=== PATIENT | female | born 1940 | race Caucasian/White ===

== ENCOUNTER 2017-01-28 14:01 | Emergency (ER) | payer MEDICARE, OTHER ==
[~2017-01-28] VITALS: Ht 162.6 cm; Wt 65.8 kg
[~2017-01-28 14:01] MED LIST: ASPI325T70 PO; ASPI325T8 PO; DONE10TA61 PO; LEVO137T3 PO; LISI40TA PO; MECL25TA PO; SIMV20TA3 PO
[2017-01-28 14:30] VITALS: BP 154/109
--- NOTE | 2017-01-28 15:36 | RAD ---
HAND BILAT 3V Clinical Indication: first digit pain bilaterally Comparison: None. Findings: No acute fracture or malalignment. The joint spaces are maintained. Bony mineralization is normal for the patient's age. No significant soft tissue abnormality. No radiopaque foreign body. IMPRESSION: No acute fracture or malalignment.
--- NOTE | 2017-01-28 15:36 | RAD ---
CT head Indication:fall with head injury Technique: CT head without IV contrast Comparison: Previous study from 2014 Findings: No pathologic extra-axial or intra-axial fluid collection. Moderate diffuse cerebral atrophy with ex likely dilation of the ventricles. No acute cranial bleed. The basal cisterns are within normal limits. Confluent low attenuation of the periventricular and deep white matter noted. No focal loss of maciel-white differentiation. Orbits are within normal limits. No acute fractures. Visualized paranasal sinuses and mastoid air cells are clear. Scalp swelling noted overlying right posterolateral parietal bone Impression: 1. No acute intracranial process. 2. Right posterolateral parietal scalp swelling. 3. Advanced White matter changes likely secondary to chronic microvascular ischemic disease. CT cervical spine Indication: Trauma Technique: CT of the cervical spine without IV contrast with multiplanar reformats. Comparison: None Findings: Cervical spine is in normal anatomic alignment. No compression deformities. Status post anterior fusion of C4-C5 vertebral bodies. No acute fractures. Atlantoaxial joint interval is preserved. Degenerative changes noted at C5-C6, C6-C7. Facet joints are in normal anatomic alignment. Prevertebral soft tissue within normal limits. Visualized lung apices are clear. Impression: No acute fractures. PQRS Compliance Statement: One or more of the following individualized dose reduction techniques were utilized for this examination: 1. Automated exposure control 2. Adjustment of the mA and/or kV according to patient size 3. Use of iterative reconstruction technique
--- NOTE | 2017-01-28 15:43 | PHYS DOC ---
Past Medical History Past Medical History: Dementia, High Cholesterol, Hypertension Past Surgical History: Other Additional Past Surgical Histo: UNKNOWN Alcohol Use: None Drug Use: None Adult General Chief Complaint Chief Complaint: HEAD INJURY/TRAUMA HPI HPI Patient is a 76 year old female who presents with followed crotch. She has a knot on the posterior aspect of her right scalp. She also complains about index finger pain. Morning to her [id number] she has a history dementia. Review of Systems Review of Systems Constitutional: Denies fever or chills [] Eyes: Denies change in visual acuity, redness, or eye pain [] HENT: Denies nasal congestion or sore throat [] Respiratory: Denies cough or shortness of breath [] Cardiovascular: No additional information not addressed in HPI [] GI: Denies abdominal pain, nausea, vomiting, bloody stools or diarrhea [] : Denies dysuria or hematuria [] Musculoskeletal: Denies back pain, positive bilateral finger pain Integument: Denies rash or skin lesions [] Neurologic: Denies headache, focal weakness or sensory changes [] Endocrine: Denies polyuria or polydipsia [] All other systems were reviewed and found to be within normal limits, except as documented in this note. Allergies Allergies Allergies Coded Allergies Type Severity Reaction Last Updated Verified No Known Drug Allergies 12/14/13 No Physical Exam Physical Exam Constitutional: Well developed, well nourished, no acute distress, non-toxic appearance. [] HENT: Normocephalic, bilateral external ears normal, oropharynx moist, no oral exudates, nose normal. Scalp hematoma in the right parietal region, no laceration appreciated Eyes: PERRLA, EOMI, conjunctiva normal, no discharge. [] Neck: Normal range of motion, no tenderness, supple, no stridor. [] Cardiovascular:Heart rate regular rhythm, no murmur [] Lungs & Thorax: Bilateral breath sounds clear to auscultation [] Abdomen: Bowel sounds normal, soft, no tenderness, no masses, no pulsatile masses. [] Skin: Warm, dry, no erythema, no rash. [] Back: No tenderness, no CVA tenderness. [] Extremities: No tenderness, no cyanosis, no clubbing, ROM intact, no edema. [] Neurologic: Alert and oriented X 3, normal motor function, normal sensory function, no focal deficits noted. [] Psychologic: Affect normal, judgement normal, mood normal. [] Current Patient Data Vital Signs Vital Signs Date Time Temp Pulse Resp B/P (MAP) Pulse Ox O2 Delivery O2 Flow Rate FiO2 01/28/17 14:30 98.7 65 20 154/109 (124) 100 Room Air 98.7 EKG EKG [] Radiology/Procedures Radiology/[place] [address] IMAGING REPORT Signed PATIENT: SAAD WILSON ACCOUNT: [id number] : 1940 LOCATION: ER AGE: 76 SEX: F EXAM STATUS: REG ER ORD. PHYSICIAN: KRISTAN LERNER MD REASON: first digit pain bilaterally PROCEDURE: HAND BILAT 3V HAND BILAT 3V Clinical Indication: first digit pain bilaterally Comparison: None. Findings: No acute fracture or malalignment. The joint spaces are maintained. Bony mineralization is normal for the patient's age. No significant soft tissue abnormality. No radiopaque foreign body. IMPRESSION: No acute fracture or malalignment. DICTATED and SIGNED BY: CHRISTINA HYATT MD DATE: 01/28/17 152 CC: KRISTAN LERNER MD; MEAGAN BERNAL MD ~ [place] [address] IMAGING REPORT Signed PATIENT: SAAD WILSON ACCOUNT: [id number] : 1940 LOCATION: ER AGE: 76 SEX: F EXAM STATUS: REG ER ORD. PHYSICIAN: KRISTAN LERNER MD REASON: fall with head injury PROCEDURE: CT HEAD AND CERVICAL SPINE WO CT head Indication:fall with head injury Technique: CT head without IV contrast Comparison: Previous study from 2013 Findings: No pathologic extra-axial or intra-axial fluid collection. Moderate diffuse cerebral atrophy with ex likely dilation of the ventricles. No acute cranial bleed. The basal cisterns are within normal limits. Confluent low attenuation of the periventricular and deep white matter noted. No focal loss of maciel-white differentiation. Orbits are within normal limits. No acute fractures. Visualized paranasal sinuses and mastoid air cells are clear. Scalp swelling noted overlying right posterolateral parietal bone Impression: 1. No acute intracranial process. 2. Right posterolateral parietal scalp swelling. 3. Advanced White matter changes likely secondary to chronic microvascular ischemic disease. CT cervical spine Indication: Trauma Technique: CT of the cervical spine without IV contrast with multiplanar reformats. Comparison: None Findings: Cervical spine is in normal anatomic alignment. No compression deformities. Status post anterior fusion of C4-C5 vertebral bodies. No acute fractures. Atlantoaxial joint interval is preserved. Degenerative changes noted at C5-C6, C6-C7. Facet joints are in normal anatomic alignment. Prevertebral soft tissue within normal limits. Visualized lung apices are clear. Impression: No acute fractures. PQRS Compliance Statement: One or more of the following individualized dose reduction techniques were utilized for this examination: 1. Automated exposure control 2. Adjustment of the mA and/or kV according to patient size 3. Use of iterative reconstruction technique DICTATED and SIGNED BY: DEBORA VALE DO DATE: 01/28/17 1526 CC: KRISTAN LERNER MD; MEAGAN BERNAL MD ~ Impressions: closed head injury Bilateral hand pain Course & Med Decision Making Course & Med Decision Making Pertinent Labs and Imaging studies reviewed. (See chart for details) She did not have any neck pain or bilateral hand pain. X-rays were performed. CT of head and neck also performed. Patient did not want to wait for films and signed out AMA. X-rays read out after the patient left did not show any fractures. Dragon Disclaimer Dragon Disclaimer This electronic medical record was generated, in whole or in part, using a voice recognition dictation system. Departure Departure Impression: Primary Impression: Closed head injury Disposition: 07 AGAINST MEDICAL ADVICE Condition: STABLE Referrals: MEAGAN BERNAL MD (PCP) KRISTAN LERNER MD Jan 28, 2017 15:43
== END 2017-01-28 15:43 | disposition left against medical advice (07) ==
LOC: ER 14:01
DX: S00.03XA Contusion of scalp, initial encounter (principal); M79.645 Pain in left finger(s); M79.644 Pain in right finger(s); F03.90 Unspecified dementia, unspecified severity, without behavioral disturbance, psychotic disturbance, mood disturbance, and anxiety; E78.00 Pure hypercholesterolemia, unspecified; I10 Essential (primary) hypertension; X58.XXXA Exposure to other specified factors, initial encounter; Y93.89 Activity, other specified; Y92.89 Other specified places as the place of occurrence of the external cause; Y99.8 Other external cause status
CPT/HCPCS: 70450; 72125; 73130; 99284-25

== ENCOUNTER → 2017-09-06 | Outpatient (CLI) | payer OTHER ==
[2017-09-06] MEDS: IOHEXOL 240 MG/ML 50ML VIAL. PO (13:30)
[2017-09-06] MEDS: IOHEXOL 300 MG/ML 100ML VIAL. IV (13:30)
== END | disposition home or self-care (01) ==
LOC: CT 12:42
DX: M47.896 Other spondylosis, lumbar region (principal); I10 Essential (primary) hypertension; E78.00 Pure hypercholesterolemia, unspecified; E03.9 Hypothyroidism, unspecified
CPT/HCPCS: 74177; Q9966; Q9967

== ENCOUNTER 2018-10-23 11:45 | Emergency (ER) | payer OTHER ==
[~2018-10-23] VITALS: Ht 162.6 cm; Wt 59.0 kg
[~2018-10-23 11:45] MED LIST changes: +LISI-130 PO; -LISI40TA PO
[2018-10-23 12:37] VITALS: BP 150/100
--- NOTE | 2018-10-23 12:57 | PHYS DOC ---
Past Medical History Past Medical History: Dementia, High Cholesterol, Hypertension Past Surgical History: Other Additional Past Surgical Histo: UNKNOWN Alcohol Use: None Drug Use: None Adult General Chief Complaint Chief Complaint: ALTERED MENTAL STATUS [facility] HPI Patient is a 78 year old this is a 78-year-old female patient with history of dementia, hypertension, high cholesterol, who presents to the ED today with the doctor to be evaluated after falling last night. Daughter states patient was home with the son and she fell from standing position hitting his head on the wall. No loss of consciousness. She states they have tried to clean the back of her head with no success. Patient has really bad dementia, she is in the room, moving furniture around, removing mattress from the bed, passing around, hitting nurses if they touch her. Review of Systems Review of Systems Constitutional: Denies fever or chills [] Eyes: Denies change in visual acuity, redness, or eye pain [] HENT: Denies nasal congestion or sore throat [] Respiratory: Denies cough or shortness of breath [] Cardiovascular: No additional information not addressed in HPI [] GI: Denies abdominal pain, nausea, vomiting, bloody stools or diarrhea [] : Denies dysuria or hematuria [] Musculoskeletal: Denies back pain or joint pain [] Integument: Denies rash or skin lesions [] Neurologic: He reports falling and hitting the head. Denies headache, focal weakness or sensory changes [] All other systems were reviewed and found to be within normal limits, except as documented in this note. Allergies Allergies Allergies Coded Allergies Type Severity Reaction Last Updated Verified No Known Drug Allergies 12/14/13 No Physical Exam Physical Exam Constitutional: Well developed, well nourished, no acute distress, non-toxic appearance. [] HENT: Normocephalic, atraumatic, bilateral external ears normal, oropharynx moist, no oral exudates, nose normal. [] Eyes: PERRLA, EOMI, conjunctiva normal, no discharge. [] Neck: Normal range of motion, no tenderness, supple, no stridor. [] Cardiovascular:Heart rate regular rhythm, no murmur [] Lungs & Thorax: Bilateral breath sounds clear to auscultation [] Abdomen: Bowel sounds normal, soft, no tenderness, no masses, no pulsatile masses. [] Skin: Warm, dry, no erythema, no rash. [] Back: No tenderness, no CVA tenderness. [] Extremities: No tenderness, no cyanosis, no clubbing, ROM intact, no edema. [] Neurologic: There is a contusion noted on the posterior aspect of the scalp with dried blood. Alert and oriented X 1, normal motor function, normal sensory function, no focal deficits noted. Very hard to do cranial nerve exam. Psychologic: Affect normal, judgement normal, mood normal. [] Current Patient Data Vital Signs Vital Signs Date Time Temp Pulse Resp B/P (MAP) Pulse Ox O2 Delivery O2 Flow Rate FiO2 10/23/18 12:37 97.9 150/100 (117) 97.9 EKG EKG [] Radiology/Procedures Radiology/Procedures [] Course & Med Decision Making Course & Med Decision Making Pertinent Labs and Imaging studies reviewed. (See chart for details) This is a 78-year-old female patient being brought to the ED by this daughter and son to be evaluated after falling last night. No loss of consciousness. Patient has a contusion on the back of the with dried blood. Patient has very bad dementia currently pacing around the room, moving furniture around, hitting nurses. I spoke with patient's PCP Dr. Diane Zimmerman, she states patient has very bard dementia very had to work with. She stated if we are not able to do anything for patient we can let her go home considering she is up ambulating with no difficulties and her behavior is baseline she can follow-up in the clinic Patient was discharged back home. Nursing staff was able to clean some of the blood from her head Dragon Disclaimer Dragon Disclaimer This electronic medical record was generated, in whole or in part, using a voice recognition dictation system. Departure Departure Impression: Primary Impression: Fall Additional Impression: Scalp contusion Disposition: 01 HOME, SELF-CARE Condition: STABLE Referrals: DIANE BERNAL MD (PCP) Follow-up in the course of this week Patient Instructions: Contusion, [id number] Additional Instructions: Follow-up with her doctor in the course of this week. Problem Qualifiers Primary Impression: Fall Encounter type: initial encounter Qualified Codes: W19.XXXA - Unspecified fall, initial encounter Additional Impression: Scalp contusion Encounter type: initial encounter Qualified Codes: S00.03XA - Contusion of scalp, initial encounter JASBIR PLATT APRN Oct 23, 2018 12:57
== END 2018-10-23 13:04 | disposition home or self-care (01) ==
LOC: ER 11:45
DX: S00.03XA Contusion of scalp, initial encounter (principal); E78.00 Pure hypercholesterolemia, unspecified; I10 Essential (primary) hypertension; W18.39XA Other fall on same level, initial encounter; Y93.89 Activity, other specified; Y92.89 Other specified places as the place of occurrence of the external cause; Y99.8 Other external cause status
CPT/HCPCS: 99284